=== PATIENT | female | born 1965 ===

== ENCOUNTER 2020-09-07 13:23 | Inpatient (IN) ==
[2020-09-07] MEDS ORDERED: Dextrose 50% Syringe 50 ml 25 GM/50 ML SYRINGE IV PUSH PRN (17:10)
[2020-09-07] MEDS ORDERED: Albuterol HFA INHALER 8 gm MDI INH PRN (17:17)
[2020-09-07 17:18] LABS: Urine Appearance Clear; Urine Bilirubin Negative (Negative); Urine Blood 2+ (Negative); Urine Color Straw; Urine Glucose 3+(>=500 mg/dL) (Negative); Urine Ketones 1+ (Negative); Urine Nitrite Negative (Negative); Urine Protein Negative (Negative); Urine Specific Gravity 1.025 (1.002-1.030); Urine Urobilinogen Negative (Negative)
[2020-09-07 17:25] LABS: Urine Bacteria Absent (Absent); Urine Red Blood Cell 3+(>10/hpf) (Absent); Urine White Blood Cell Trace(0-5/hpf) (Absent)
[2020-09-07 17:41] LABS: Urine Benzodiazepine Screen None Detected (None Detect); Urine Cannabinoids Screen None Detected (None Detect); Urine Opiates Screen None Detected (None Detect)
[2020-09-07] MEDS ORDERED: Vancomycin per Pharmacy 1 EA NOTE FOLLOW UP PRN (18:00)
[2020-09-07] MEDS ORDERED: NORMOSOL-R pH 7.4 1000 mL BAG 1,000 ML IV SCH (18:00)
[2020-09-07] MEDS ORDERED: Zosyn per Pharmacy NOTE FOLLOW UP PRN (18:02)
[2020-09-07 18:04] LABS: ABS Lymphocytes 1.8 10^3/ul (1.0-4.8); ABS Monocytes 1.1 10^3/ul (0-0.8); ABS Neutrophils 8.7 10^3/ul (1.5-7.7); Eosinophil % 0.1 %; Hematocrit 36 % (35-47); Hemoglobin 11.2 g/dL (12.0-16.0); Lymphocyte % 15.5 %; Mean Corpuscular HGB Conc 31 g/dL (31-36); Mean Corpuscular Hemoglobin 28 pg (27-31); Mean Corpuscular Volume 90 fL (80-97); Mean Platelet Volume 8.2 fL (7.4-10.4); Nucleated Red Blood Cells % 0.1; Platelet Count 142 10^3/uL (150-450); Red Blood Count 4.02 10^6 /uL (3.70-4.87); Red Cell Distribution Width 16 % (10-15); White Blood Count 11.6 10^3/uL (3.5-10.8)
[2020-09-07] MEDS ORDERED: Zosyn 3.375 gm X 1 dose, then dose per Pharmacy IV ONE (18:15)
[2020-09-07 18:19] LABS: Activated Partial Thrombo Time 31.2 seconds (26.0-38.0); INR 1.36 (0.82-1.09)
[2020-09-07 18:28] LABS: Albumin 3.2 g/dL (3.2-5.2); Calcium 7.8 mg/dL (8.6-10.3); Magnesium 2.1 mg/dL (1.9-2.7); Total Bilirubin 0.7 mg/dL (0.2-1.0)
[2020-09-07 18:29] LABS: Potassium 5.1 mmol/L (3.5-5.0)
[2020-09-07 18:34] LABS: EGFR Non-African American 49.6 (>60); Globulin 3.2 g/dL (2-4); Phosphorus 3.2 mg/dL (2.5-5.0); Total Protein 6.4 g/dL (6.4-8.9)
[2020-09-07] MEDS ORDERED: Vancomycin 1500 MG IV - x ONCE IVPB ONE (18:45)
[2020-09-07] MEDS ORDERED: Ondansetron 4 mg VIAL 2 MG/ML 2 ml VIAL IV PRN (18:49)
[2020-09-07] MEDS: Insulin Infusion 100unit/100mL 100 UNIT/100 ML BAG IV SCH (21:16)
[2020-09-07 21:56] LABS: Glucose Confirmatory 528 mg/dL (70-100)
[2020-09-07] MEDS: ZOSYN 3.375 GM Q8H per EXTENDED INFUSION IV SCH (22:10)
[2020-09-07 22:44] LABS: Glucose Confirmatory 503 mg/dL (70-100)
[2020-09-07] MEDS: Lactulose 30 ml UDC PO SCH (23:13)
[2020-09-07 23:23] LABS: Blood Urea Nitrogen 25 mg/dL (6-24); CO2 Carbon Dioxide 16 mmol/L (22-32); Calcium 8.1 mg/dL (8.6-10.3); EGFR African American 57.6 (>60); EGFR Non-African American 47.6 (>60); Glucose 452 mg/dL (70-100); Potassium 3.9 mmol/L (3.5-5.0); Sodium 145 mmol/L (135-145)
[2020-09-07 23:26] LABS: Anion Gap 14 mmol/L (2-11); Chloride 115 mmol/L (101-111)
[2020-09-07 23:27] LABS: Glucose Confirmatory 452 mg/dL (70-100)
[2020-09-07] MEDS: KCL 10 MEQ/50 ML IVPREMIX 10 MEQ/50 ML BAG IV SCH (23:51)
[2020-09-08] MEDS: KCL 10 MEQ/50 ML IVPREMIX 10 MEQ/50 ML BAG IV SCH ×2 (01:03→02:23)
[2020-09-08 03:27] LABS: Calcium 8.4 mg/dL (8.6-10.3); Potassium 4.5 mmol/L (3.5-5.0)
[2020-09-08 03:32] LABS: EGFR Non-African American 49.6 (>60)
[2020-09-08] MEDS ORDERED: D5W 1/2 NS KCl 20 meq 1000 ml 1,000 ML IV SCH ×2 (04:00→07:28)
[2020-09-08] MEDS: Insulin Infusion 100unit/100mL 100 UNIT/100 ML BAG IV SCH (04:19)
[2020-09-08 05:10] LABS: ABS Basophils 0.1 10^3/ul (0-0.2); ABS Lymphocytes 1.9 10^3/ul (1.0-4.8); ABS Monocytes 1.5 10^3/ul (0-0.8); ABS Neutrophils 7.4 10^3/ul (1.5-7.7); Eosinophil % 0.2 %; Hematocrit 36 % (35-47); Hemoglobin 11.5 g/dL (12.0-16.0); Lymphocyte % 17.3 %; Mean Corpuscular HGB Conc 33 g/dL (31-36); Mean Corpuscular Hemoglobin 28 pg (27-31); Mean Corpuscular Volume 86 fL (80-97); Mean Platelet Volume 7.5 fL (7.4-10.4); Platelet Count 156 10^3/uL (150-450); Red Blood Count 4.12 10^6 /uL (3.70-4.87); Red Cell Distribution Width 15 % (10-15); White Blood Count 10.8 10^3/uL (3.5-10.8)
[2020-09-08 05:27] LABS: Albumin 3.2 g/dL (3.2-5.2); Calcium 8.6 mg/dL (8.6-10.3); EGFR African American 58.8 (>60); EGFR Non-African American 48.6 (>60); Globulin 3.2 g/dL (2-4); Magnesium 2.3 mg/dL (1.9-2.7); Potassium 4.3 mmol/L (3.5-5.0); Total Bilirubin 0.5 mg/dL (0.2-1.0); Total Protein 6.4 g/dL (6.4-8.9)
[2020-09-08] MEDS: ZOSYN 3.375 GM Q8H per EXTENDED INFUSION IV SCH (05:56)
[2020-09-08] MEDS ORDERED: Vancomycin 1,250 MG in NS 0.9% 250 ml 250 ML IVPB SCH (06:30)
[2020-09-08] MEDS: Lactulose 30 ml UDC PO SCH ×3 (08:05→21:10)
[2020-09-08] MEDS: Insulin GLARGINE 100 un/ml 10 ml VIAL SUBCUT SCH ×2 (08:13→21:09)
[2020-09-08] MEDS ORDERED: Insulin GLARGINE 100 un/ml 10 ml VIAL SUBCUT SCH (09:00)
[2020-09-08] MEDS ORDERED: Dexamethasone IV 4 MG/ML VIAL 1 ml VIAL IV SLOW PU ONE (09:25)
[2020-09-08] MEDS ORDERED: Acyclovir IV 500 MG/10 ML 100 ML VIAL (500 MG) IVPB SCH (10:00)
[2020-09-08] MEDS ORDERED: NS 0.9% IVPB SCH ×2 (10:00→16:00)
[2020-09-08] MEDS ORDERED: Acyclovir IV 550 MG in NS 0.9% 100 ml BAG 100 ML IVPB SCH (10:00)
[2020-09-08] MEDS ORDERED: ACYCLOVIR IVPB SCH ×2 (10:00→16:00)
[2020-09-08] MEDS ORDERED: cefTRIAXone 2 GM ADDV.VIAL 2 GM in NS 0.9% 100 ml BAG 100 ML IV SCH (10:00)
[2020-09-08] MEDS ORDERED: Etomidate 40 mg/20 ml (2 MG/ML) 20 ml VIAL (40 mg) ONE (10:25)
[2020-09-08] MEDS ORDERED: Midazolam 10 mg/10 ml VIAL 1 mg/ml 10 ml VIAL (10 mg) ONE (10:25)
[2020-09-08] MEDS ORDERED: Ampicillin ADVAN 2 GM in NS 0.9% 100 ml BAG 100 ML IVPB SCH (11:00)
[2020-09-08] MEDS ORDERED: Dextrose 50% Syringe 50 ml 25 GM/50 ML SYRINGE IV PUSH PRN (12:01)
[2020-09-08] MEDS ORDERED: Propofol 10 MG/ML 20 ML BTL ONE (12:09)
[2020-09-08] MEDS ORDERED: Prochlorperazine 5 mg/ml 2 ml VIAL (10 mg) IV PRN (13:27)
[2020-09-08 13:31] LABS: Body Fluid Source Cerebral Spinal
[2020-09-08 13:48] LABS: CSF Glucose 151 mg/dL (40-70)
[2020-09-08 14:20] LABS: Body Fluid Mono 4 %
[2020-09-08] MEDS ORDERED: NS 0.45% 1000 ml BAG 1,000 ML IV SCH (16:00)
[2020-09-08] MEDS ORDERED: Gadoteridol (CONTRAST) 279.3 MG/ML 10 ML IV ONE (16:59)
[2020-09-08] MEDS ORDERED: LORazepam 2 mg VIAL 1 ml IV PUSH ONE ×2 (17:02→19:51)
[2020-09-08] MEDS ORDERED: Lorazepam PYXIS KEY PRN ×2 (17:02→19:51)
[2020-09-08] MEDS: levETIRAcetam 1000MG IVPREMIX 1,000 MG/100 ML BAG IVPB SCH (17:33)
[2020-09-08] MEDS ORDERED: Lorazepam PYXIS KEY ONE ×2 (17:44→18:53)
[2020-09-08] MEDS: Dexamethasone IV 4 MG/ML VIAL 1 ml VIAL IV SLOW PU SCH (17:48)
[2020-09-08] MEDS ORDERED: LORazepam 2 mg VIAL 1 ml ONE (18:53)
[2020-09-08] MEDS: ACYCLOVIR IVPB SCH (20:58)
[2020-09-08] MEDS: NS 0.9% IVPB SCH (20:58)
[2020-09-08] MEDS: Ampicillin ADVAN 2 GM in NS 0.9% 100 ml BAG 100 ML IVPB SCH (21:05)
[2020-09-08 21:46] LABS: TSH Ultra Thyroid Stim Horm 0.87 mcIU/mL (0.34-5.60)
[2020-09-08 21:52] LABS: Thyroid Peroxidase Antibodies 2.24 IU/mL (<9)
[2020-09-08] MEDS: cefTRIAXone 2 GM ADDV.VIAL 2 GM in NS 0.9% 100 ml BAG 100 ML IV SCH (22:20)
[2020-09-08 23:14] LABS: Calcium 8.6 mg/dL (8.6-10.3); EGFR African American 67.3 (>60); EGFR Non-African American 55.6 (>60); Potassium 4.6 mmol/L (3.5-5.0)
[2020-09-09] MEDS: Dexamethasone IV 4 MG/ML VIAL 1 ml VIAL IV SLOW PU SCH ×3 (00:06→13:14)
[2020-09-09] MEDS: Ampicillin ADVAN 2 GM in NS 0.9% 100 ml BAG 100 ML IVPB SCH ×4 (01:47→20:03)
[2020-09-09] MEDS: ACYCLOVIR IVPB SCH ×3 (03:39→20:54)
[2020-09-09] MEDS: NS 0.9% IVPB SCH ×3 (03:39→20:54)
[2020-09-09] MEDS: levETIRAcetam 1000MG IVPREMIX 1,000 MG/100 ML BAG IVPB SCH (05:40)
[2020-09-09] MEDS ORDERED: Vancomycin Trough Check NOTE FOLLOW UP ONE (06:00)
[2020-09-09 06:07] LABS: ABS Lymphocytes 0.9 10^3/ul (1.0-4.8); ABS Monocytes 0.4 10^3/ul (0-0.8); ABS Neutrophils 7.7 10^3/ul (1.5-7.7); Hematocrit 33 % (35-47); Hemoglobin 10.8 g/dL (12.0-16.0); Lymphocyte % 9.7 %; Mean Corpuscular HGB Conc 33 g/dL (31-36); Mean Corpuscular Hemoglobin 28 pg (27-31); Mean Corpuscular Volume 87 fL (80-97); Mean Platelet Volume 7.6 fL (7.4-10.4); Platelet Count 140 10^3/uL (150-450); Red Blood Count 3.81 10^6 /uL (3.70-4.87); Red Cell Distribution Width 16 % (10-15)
[2020-09-09 06:27] LABS: Calcium 8.5 mg/dL (8.6-10.3); EGFR African American 69.6 (>60); EGFR Non-African American 57.6 (>60); Potassium 4.5 mmol/L (3.5-5.0)
[2020-09-09] MEDS: Lactulose 30 ml UDC PO SCH ×3 (08:30→20:03)
[2020-09-09] MEDS: Insulin GLARGINE 100 un/ml 10 ml VIAL SUBCUT SCH ×2 (08:30→22:50)
[2020-09-09] MEDS: Enoxaparin 40 MG/0.4 ML SYR SUBCUT SCH (11:01)
[2020-09-09] MEDS: cefTRIAXone 2 GM ADDV.VIAL 2 GM in NS 0.9% 100 ml BAG 100 ML IV SCH (11:01)
[2020-09-09 14:57] LABS: Calcium 8.1 mg/dL (8.6-10.3); EGFR African American 69.6 (>60); EGFR Non-African American 57.6 (>60); Potassium 3.7 mmol/L (3.5-5.0)
[2020-09-09 15:01] LABS: CSF VDRL Negative (Negative)
[2020-09-09] MEDS ORDERED: Dextrose 50% Syringe 50 ml 25 GM/50 ML SYRINGE IV PUSH PRN ×2 (16:04→18:36)
[2020-09-09] MEDS ORDERED: Insulin GLARGINE 100 un/ml 10 ml VIAL SUBCUT ONE (16:04)
[2020-09-09 17:58] LABS: HSV 1 PCR, CSF Negative (Negative); HSV 2 PCR, CSF Negative (Negative)
[2020-09-09] MEDS: levETIRAcetam 500 MG IVPREMIX 500 MG/100 ML BAG IV SCH (22:58)
[2020-09-10] MEDS: Ampicillin ADVAN 2 GM in NS 0.9% 100 ml BAG 100 ML IVPB SCH (01:46)
[2020-09-10] MEDS: NS 0.9% IVPB SCH ×3 (02:57→19:45)
[2020-09-10] MEDS: ACYCLOVIR IVPB SCH ×3 (02:57→19:45)
[2020-09-10 08:21] LABS: ABS Eosinophils 0.1 10^3/ul (0-0.6); ABS Lymphocytes 2.5 10^3/ul (1.0-4.8); ABS Monocytes 0.6 10^3/ul (0-0.8); ABS Neutrophils 5.7 10^3/ul (1.5-7.7); Eosinophil % 0.9 %; Hematocrit 32 % (35-47); Hemoglobin 10.4 g/dL (12.0-16.0); Lymphocyte % 28.6 %; Mean Corpuscular HGB Conc 33 g/dL (31-36); Mean Corpuscular Hemoglobin 28 pg (27-31); Mean Corpuscular Volume 86 fL (80-97); Mean Platelet Volume 7.8 fL (7.4-10.4); Nucleated Red Blood Cells % 0.1; Platelet Count 136 10^3/uL (150-450); Red Blood Count 3.69 10^6 /uL (3.70-4.87); Red Cell Distribution Width 15 % (10-15); White Blood Count 8.9 10^3/uL (3.5-10.8)
[2020-09-10] MEDS ORDERED: Dextrose 50% Syringe 50 ml 25 GM/50 ML SYRINGE IV PUSH PRN (08:29)
[2020-09-10 08:31] LABS: Calcium 8.3 mg/dL (8.6-10.3); EGFR African American 69.6 (>60); EGFR Non-African American 57.6 (>60); Potassium 4.1 mmol/L (3.5-5.0)
[2020-09-10] MEDS: Insulin GLARGINE 100 un/ml 10 ml VIAL SUBCUT SCH ×2 (10:15→21:20)
[2020-09-10] MEDS: Enoxaparin 40 MG/0.4 ML SYR SUBCUT SCH (10:17)
[2020-09-10] MEDS: levETIRAcetam 500 MG IVPREMIX 500 MG/100 ML BAG IV SCH (10:26)
[2020-09-11] MEDS: ACYCLOVIR IVPB SCH (03:33)
[2020-09-11] MEDS: NS 0.9% IVPB SCH (03:33)
[2020-09-11 07:48] LABS: CO2 Carbon Dioxide 15 mmol/L (22-32); Calcium 7.8 mg/dL (8.6-10.3); Magnesium 1.7 mg/dL (1.9-2.7); Sodium 138 mmol/L (135-145)
[2020-09-11 07:53] LABS: Blood Urea Nitrogen 16 mg/dL (6-24); EGFR African American 88.6 (>60); EGFR Non-African American 73.2 (>60); Glucose 146 mg/dL (70-100)
[2020-09-11 08:12] LABS: Anion Gap 9 mmol/L (2-11); Chloride 114 mmol/L (101-111)
[2020-09-11] MEDS: Enoxaparin 40 MG/0.4 ML SYR SUBCUT SCH (09:11)
[2020-09-11] MEDS: Insulin GLARGINE 100 un/ml 10 ml VIAL SUBCUT SCH ×2 (09:12→22:03)
[2020-09-12] MEDS: Insulin GLARGINE 100 un/ml 10 ml VIAL SUBCUT SCH (09:14)
[2020-09-12 15:58] VITALS: BP 132/57
[2020-09-16 00:59] LABS: IgG Immunoblot Negative (Negative); IgM Immunoblot Negative (Negative)
[2020-09-16 13:34] LABS: Anti-Glial/Neuronal Nuc Ab-1 A Negative titer (<1:240); Anti-Neuronal Nuclear Ab Type1 Negative titer (<1:240); Anti-Neuronal Nuclear Ab Type2 Negative titer (<1:240); Anti-Neuronal Nuclear Ab Type3 Negative titer (<1:240); CRMP-5 IgG Antibody Negative titer (<1:240); Purkinje Cell Cytoplasm Typ Tr Negative titer (<1:240); Purkinje Cell Cytoplasm Type 1 Negative titer (<1:240); Purkinje Cell Cytoplasm Type 2 Negative titer (<1:240)
[2020-09-16 14:13] LABS: West Nile Virus Source CSF
[2020-09-21 16:15] LABS: CSF West Nile Virus IgG Ab Negative (Negative); CSF West Nile Virus IgM Ab Negative (Negative)
== END 2020-09-12 18:30 | disposition home health service (06) | DRG 720 ==
LOC: ICU 15:51 → MED 09-09 18:06
PROVIDERS: ADMIT Internal Medicine; ATTEND Internal Medicine